=== PATIENT | female | born 1935 | race African-American/Black ===

== ENCOUNTER 2017-07-29 11:44 | Emergency (ER) | payer MEDICARE, OTHER ==
[~2017-07-29] VITALS: Wt 120.0 kg
[~2017-07-29 11:44] MED LIST: ANAS1TAB5 PO; BENA40TA41 PO; CARV25TA79 PO; DULO60CA6 PO; EZET10TA3 PO; FLUT1AER INHALATION; HYD25 PO; INSU100V27 SC; LINA5TAB PO; OMEP20TA55 PO; OMEP40CA6 PO; SPIR25TA PO
[2017-07-29] MEDS ORDERED: ACETAMINOPHEN 500 MG TAB PO STA (13:43)
--- NOTE | 2017-07-29 13:53 | RADRPT ---
PROCEDURE: XR Elbow. CLINICAL INDICATION: Right elbow pain after trauma TECHNIQUE: Three views of the right elbow are available for review COMPARISON: None available FINDINGS: There is normal mineralization and alignment of the bones of the elbow. There is no definite joint effusion. No acute fractures are identified. There is swelling over the olecranon which may be rela kaylee to olecranon bursitis or hematoma . IMPRESSION: 1. No definite fracture or dislocation. 2. Soft tissue swelling over the olecranon consistent with olecranon bursitis versus hematoma. RPTAT: HJBF .George Diallo MD, Date Time Electronically viewed and signed by .George Diallo MD, on 07/29/2017 13:52 .B/
[2017-07-29] MEDS ORDERED: CEPHALEXIN 500 MG CAP PO ONE (14:00)
[2017-07-29] MEDS ORDERED: LIDOCAINE 1% (MDV) 20 ML INJ SC ONE (14:00)
[2017-07-29] MEDS ORDERED: ACET500C5 PO (14:34)
[2017-07-29] MEDS ORDERED: CEPH-443 PO (14:34)
--- NOTE | 2017-07-29 14:40 | ERD ---
ER Documentation Chief Complaint Date/Time DATE: 07/29/17 TIME: 14:36 Chief Complaint R ELBOW PAIN X 3 WEEKS HPI This 82-year-old female presents with a three-week history of pain and swelling on her right elbow. It started after falling out of bed. She has restricted range of motion weakness. The swelling is on her olecranon area. She denies any fevers or redness. ROS All systems reviewed and are negative except as per history of present illness. Medications Home Meds Active Scripts Acetaminophen* (Tylophen*) 500 Mg Capsule, 1 CAP PO Q6H Y for PAIN AND OR ELEVATED TEMP, #15 CAP Prov:JEFF BASURTO MD 07/29/17 Cephalexin* (Keflex*) 500 Mg Capsule, 500 MG PO QID for 7 Days, CAP Prov:JEFF BASURTO MD 07/29/17 Omeprazole Magnesium (Prilosec OTC) 20 Mg Tablet.dr, 20 MG PO DAILY, #30 TAB Prov:VINH THOMPSON 08/28/16 Reported Medications Spironolactone* (Aldactone*) 25 Mg Tablet, 25 MG PO DAILY, #30 TAB 09/28/16 Fluticasone-Vilanterol (Breo Ellipta Inhaler) 100-25 Mcg/Actuation Aer.pow.ba, 1 PUFF INHALATION QHS, #1 INHALER 09/28/16 Benazepril Hcl* (Benazepril Hcl*) 40 Mg Tablet, 40 MG PO BID, #30 TAB 09/28/16 Omeprazole* (Omeprazole*) 40 Mg Capsule.dr, 40 MG PO DAILY, #30 CAP 08/26/16 Hydrochlorothiazide* (Hydrochlorothiazide*) 25 Mg Tab, 25 MG PO DAILY, #30 TAB 08/26/16 Linagliptin (TRADJENTA) 5 Mg Tablet, 5 MG PO DAILY, TAB 01/06/16 Insulin Lisp Protam/Lisp Human* (Humalog Mix (75/25)*) 100 Units/Ml Susp, 42 SC AC MEALS, EA 01/06/16 Ezetimibe* (Zetia*) 10 Mg Tablet, 10 MG PO HS, TAB 01/06/16 Duloxetine Hcl* (Cymbalta*) 60 Mg Capsule.dr, 60 MG PO BID, CAP 01/06/16 Carvedilol* (Carvedilol*) 25 Mg Tablet, 25 MG PO BID, #60 TAB 01/06/16 Anastrozole (Arimidex) 1 Mg Tablet, 1 PO DAILY 04/19/12 Allergies Allergies: Coded Allergies: propofol (Verified Allergy, Intermediate, 09/27/16) rosuvastatin calcium (Verified Allergy, Intermediate, 08/28/16) furosemide (Verified Allergy, Unknown, 08/28/16) gabapentin (Unverified Allergy, Unknown, 09/28/16) insulin aspart (Verified Allergy, Unknown, 08/28/16) sulfamethoxazole (Verified Allergy, Unknown, RASH, 09/28/16) trimethoprim (Verified Allergy, Unknown, RASH, 09/28/16) PMhx/Soc Medical and Surgical Hx: pt denies Surgical Hx History of Surgery: Yes (HYSTERECTOMY, R LUMPECTOMY, NEPHRECTOMY, WOUND DEBRID. , GLAUCOMA SURGERY) Anesthesia Reaction: Yes (PROPOFOL CAUSED THROAT SWELLING) Hx Neurological Disorder: No Hx Respiratory Disorders: Yes (COPD, asthma, bronchitis) Hx Cardiac Disorders: Yes (L BBB, HTN, CAD PCI X2) Hx Psychiatric Problems: No Hx Miscellaneous Medical Probl: Yes (DM, Arteriolscreosis) Hx Alcohol Use: No Hx Substance Use: No Hx Tobacco Use: No Smoking Status: Former smoker Physical Exam Vitals Vital Signs Date Time Temp Pulse Resp B/P Pulse Ox O2 Delivery O2 Flow Rate FiO2 07/29/17 11:52 98.0 63 18 205/71 99 Physical Exam Const: []Alert, not ill-appearing. Head: Atraumatic Eyes: Normal Conjunctiva ENT: Normal External Ears, Nose and Mouth. Neck: Full range of motion..~ No meningismus. Resp: Clear to auscultation bilaterally Cardio: Regular rate and rhythm, no murmurs Abd: Soft, non tender, non distended. Normal bowel sounds Skin: No petechiae or rashes Back: No midline or flank tenderness Ext: No cyanosis, or edema. There is some tenderness and swelling and fluctuance on the right olecranon area. There is no erythema, warmth, effusion or deformities. There is no evidence of ischemia. Neur: Awake and alert Psych: Normal Mood and Affect Results 24 hrs Current Medications Medications (Trade) Dose Ordered Sig/Giovana Route PRN Reason Start Time Stop Time Status Last Admin Dose Admin Lidocaine (Xylocaine 1% (Mdv) 20 ml) 20 ml ONCE ONCE SC 07/29/17 14:00 07/29/17 14:01 DC 07/29/17 14:10 Acetaminophen (Tylenol Tab) 500 mg ONCE STAT PO 07/29/17 13:43 07/29/17 13:52 DC 07/29/17 14:10 Cephalexin (Keflex) 500 mg ONCE ONCE PO 07/29/17 14:00 07/29/17 14:01 DC 07/29/17 14:14 Procedures/MDM X-ray Elbow 3V Interpreted by me: Fat Pads: Normal Bones: No fracture Joints: No dislocation Foreign body: None impression-normal right elbow. Patient presents with signs of right olecranon bursitis. Patient is requesting drainage. Procedure note-the right olecranon was prepped with Betadine and alcohol. 1 cc lidocaine was used for local nutrition. 18- gauge needle was used to aspirate approximately 10 cc of sanguinous fluid. Patient tolerated procedure well and a compression dressing was applied. Patient was discharged home with a prescription of Keflex and Tylenol 6 for a 2 day recheck for worsening redness, fevers, new symptoms. She should otherwise follow-up with primary doctor and orthopedist for recurrent symptoms. Departure Diagnosis: Primary Impression: Bursitis Bursitis location: elbow Elbow bursitis location: olecranon bursitis Laterality: right Qualified Code: M70.21 - Olecranon bursitis of right elbow Condition: Stable Patient Instructions: Bursitis, Elbow (Olecranon) Additional Instructions: Elevate at home. Use Yonis bandage for the next few days. Recheck in 2 days for redness, worsening swelling. JEFF BASURTO MD Jul 29, 2017 14:40
== END 2017-07-29 14:40 | disposition home or self-care (01) ==
LOC: FTE 11:44
DX: M70.21 Olecranon bursitis, right elbow (principal); E11.9 Type 2 diabetes mellitus without complications; I10 Essential (primary) hypertension; I25.10 Atherosclerotic heart disease of native coronary artery without angina pectoris; J44.9 Chronic obstructive pulmonary disease, unspecified; Y93.9 Activity, unspecified; Z79.4 Long term (current) use of insulin; Z87.891 Personal history of nicotine dependence

== ENCOUNTER 2017-08-01 12:28 | Emergency (ER) | payer MEDICARE, OTHER ==
[~2017-08-01] VITALS: Ht 160 cm; Wt 89.0 kg
[~2017-08-01 12:28] MED LIST changes: +ACET500C5 PO; +CEPH-443 PO; -HYD25 PO; +HYDR25TA6 PO
[2017-08-01 12:34] VITALS: Ht 160 cm; Wt 89.0 kg
--- NOTE | 2017-08-01 14:27 | ERA ---
ER Documentation Chief Complaint Date/Time DATE: 08/01/17 TIME: 14:26 Chief Complaint right elbow wound HPI The patient is a 82-year-old female, presenting to the ER for wound check of the right elbow bursitis that was aspirated yesterday. He complains of minimal discharge, is taking Keflex. She denies fever, chills, neck pain, chest pain, dyspnea she does not smoke nor drink Past medical history: COPD, CAD, diabetes mellitus, asthma X Past medical history: Hysterectomy, nephrectomy, stent PCI, glaucoma ROS All systems reviewed and are negative except as per history of present illness. Medications Home Meds Active Scripts Acetaminophen* (Tylophen*) 500 Mg Capsule, 1 CAP PO Q6H Y for PAIN AND OR ELEVATED TEMP, #15 CAP Prov:JEFF BASURTO MD 07/29/17 Cephalexin* (Keflex*) 500 Mg Capsule, 500 MG PO QID for 7 Days, CAP Prov:JEFF BASURTO MD 07/29/17 Omeprazole Magnesium (Prilosec OTC) 20 Mg Tablet., 20 MG PO DAILY, #30 TAB Prov:VINH THOMPSON 08/28/16 Reported Medications Spironolactone* (Aldactone*) 25 Mg Tablet, 25 MG PO DAILY, #30 TAB 09/28/16 Fluticasone-Vilanterol (Breo Ellipta Inhaler) 100-25 Mcg/Actuation Aer.pow.ba, 1 PUFF INHALATION QHS, #1 INHALER 09/28/16 Benazepril Hcl* (Benazepril Hcl*) 40 Mg Tablet, 40 MG PO BID, #30 TAB 09/28/16 Omeprazole* (Omeprazole*) 40 Mg Capsule., 40 MG PO DAILY, #30 CAP 08/26/16 Hydrochlorothiazide* (Hydrochlorothiazide*) 25 Mg Tab, 25 MG PO DAILY, #30 TAB 08/26/16 Linagliptin (TRADJENTA) 5 Mg Tablet, 5 MG PO DAILY, TAB 01/06/16 Insulin Lisp Protam/Lisp Human* (Humalog Mix (75/25)*) 100 Units/Ml Susp, 42 SC AC MEALS, EA 01/06/16 Ezetimibe* (Zetia*) 10 Mg Tablet, 10 MG PO HS, TAB 01/06/16 Duloxetine Hcl* (Cymbalta*) 60 Mg Capsule.dr, 60 MG PO BID, CAP 01/06/16 Carvedilol* (Carvedilol*) 25 Mg Tablet, 25 MG PO BID, #60 TAB 01/06/16 Anastrozole (Arimidex) 1 Mg Tablet, 1 PO DAILY 04/19/12 Allergies Allergies: Coded Allergies: propofol (Verified Allergy, Intermediate, 09/27/16) rosuvastatin calcium (Verified Allergy, Intermediate, 08/28/16) furosemide (Verified Allergy, Unknown, 08/28/16) gabapentin (Unverified Allergy, Unknown, 09/28/16) insulin aspart (Verified Allergy, Unknown, 08/28/16) sulfamethoxazole (Verified Allergy, Unknown, RASH, 09/28/16) trimethoprim (Verified Allergy, Unknown, RASH, 09/28/16) PMhx/Soc History of Surgery: Yes (HYSTERECTOMY, R LUMPECTOMY, NEPHRECTOMY, WOUND DEBRID. , GLAUCOMA SURGERY) Anesthesia Reaction: Yes (PROPOFOL CAUSED THROAT SWELLING) Hx Neurological Disorder: No Hx Respiratory Disorders: Yes (COPD, asthma, bronchitis) Hx Cardiac Disorders: Yes (L BBB, HTN, CAD PCI X2) Hx Psychiatric Problems: No Hx Miscellaneous Medical Probl: Yes (DM, Arteriolscreosis) Hx Alcohol Use: No Hx Substance Use: No Hx Tobacco Use: No Physical Exam Vitals Vital Signs Date Time Temp Pulse Resp B/P Pulse Ox O2 Delivery O2 Flow Rate FiO2 08/01/17 15:23 98.4 78 20 131/68 99 08/01/17 12:34 98.1 65 18 138/65 99 Physical Exam Const: No acute distress. Head: Atraumatic. Eyes: Normal Conjunctiva. ENT: Normal External Ears, Nose and Mouth. Neck: Full range of motion. No meningismus. Resp: Clear to auscultation bilaterally. Cardio: Regular rate and rhythm. Abd: Soft, non distended, normal bowel sounds, non tender. Skin: No petechiae or rashes. Back: No midline or flank tenderness. Ext: Right olecranon bursitis is healing well, no erythema, no discharge, not warm to touch Neur: Awake and alert. No focal deficit Psych: Normal Mood and Affect. Procedures/MDM MEDICAL MAKING DECISION: The patient is a 82-year-old female, presenting with acute right olecranon bursitis. She is stable for outpatient follow-up. Departure Diagnosis: Primary Impression: Encounter for wound re-check Condition: Good Comments I discussed the findings with the patient. I advised the patient to follow-up with the ortho Dr Drake in about 1-2 days, sooner if needed and return if any concern. The patient's blood pressure was elevated (>120/80) but appears stable without evidence of hypertension emergency or urgency. The patient was counseled about the risks of hypertension and urged to pursue outpatient monitoring and therapy within a week with their primary care physician. KENYATTA MCCORMICK MD Aug 01, 2017 14:27
[2017-08-01 15:23] VITALS: BP 131/68; PULSE 78; RESP 20; TEMP 98.4
== END 2017-08-01 15:25 | disposition home or self-care (01) ==
LOC: E/R 12:28
DX: Z48.01 Encounter for change or removal of surgical wound dressing (principal); I10 Essential (primary) hypertension; E11.9 Type 2 diabetes mellitus without complications; J44.9 Chronic obstructive pulmonary disease, unspecified; J45.909 Unspecified asthma, uncomplicated; I25.10 Atherosclerotic heart disease of native coronary artery without angina pectoris; Z79.4 Long term (current) use of insulin; Z79.84 Long term (current) use of oral hypoglycemic drugs
CPT/HCPCS: 99281

== ENCOUNTER 2017-09-22 11:30 | Day surgery (SDC) | payer MEDICARE, OTHER ==
--- NOTE | 2017-09-21 06:36 | CONS ---
DATE OF ADMISSION: 09/22/2017 DATE OF CONSULTATION: MEDICAL CONSULTATION/PREOPERATIVE HISTORY AND PHYSICAL ADMITTING DIAGNOSIS: Recurrent olecranon bursitis with chip fracture of the right elbow, in for leslie ctive surgery by Dr. Brian Drake. HISTORY OF PRESENT ILLNESS: The patient is an 82-year-old female with coronary artery disease, diab etes, arthritis, gastroesophageal reflux disease, hyperlipidemia, chronic kidney disease who fell se veral months ago and injured her right elbow. The patient has had recurrent swelling and pain relat ed to bursitis as well as findings of a chip fracture there. The patient has failed conservative th erapy and is being admitted for elective surgical correction of the bursitis and chip fracture by Dr Raymond Drake. REVIEW OF SYSTEMS: No chest pain, no palpitations, no shortness of breath. No orthopnea. No fever s, chills or night sweats. No cough, no wheezing. The patient does complain of some constipation, but no abdominal pain, no nausea, no swallowing problems. No vomiting, no diarrhea. The patient re ports that the pain in the elbow has been persistent despite several attempts at draining. The chavez ent does have chronic back pain and may need an epidural in the future. NEUROLOGIC: The patient has had some memory loss, slowed thinking and tends to have trouble with th inking after surgery because of anesthesia, it takes weeks usually for her to recover. Blood sugars have been in the 90 to 110 range. No hypoglycemia or hypoglycemic symptoms. PAST MEDICAL HISTORY: Coronary artery disease, gastroesophageal reflux disease, hyperlipidemia, lum bar spondylosis, hypertension, type 2 diabetes with diabetic neuropathy, chronic kidney disease stag e III. PAST SURGICAL HISTORY: Status post right breast lumpectomy for breast cancer, thyroid cancer status post resection, status post right nephrectomy, status post hysterectomy. FAMILY HISTORY: Brother of an aneurysm at age 83. SOCIAL HISTORY: The patient is a , x3, no alcohol use. Quit tobacco, but has a 60-pac k-year history. PHYSICAL EXAMINATION: VITAL SIGNS: Blood pressure 150/60, respirations 12, pulse rate 78 and regular, temperature 98.2, o xygen saturation 96% on room air, weight of 264 pounds. GENERAL: Well-developed, well-nourished female in no acute distress. SKIN: Without rashes. HEENT: EOMI, PERRLA. Oropharynx clear without exudate. NECK: No jugular venous distention, 2+ carotid upstroke without bruits. No elevated jugular venous distention. No lymphadenopathy, no thyromegaly. CHEST: Clear to auscultation bilaterally. No wheezes, rhonchi or rales. HEART: Regular rate and rhythm. Normal S1, S2. No murmurs, no gallops, no rubs. Heart sounds are distant. There is trace pitting edema of the lower extremities. No bruits noted. ABDOMEN: Soft, nontender, mild obesity, normoactive bowel sounds. There is no hepatojugular reflux . MUSCULOSKELETAL: Antalgic gait with use of a front-wheel walker to ambulate. Right olecranon area with warmth, effusion, palpable lump within the effusion. Relatively normal elbow range of motion w ith some mild to moderate pain to palpation. NEUROLOGIC: Nonfocal. LABORATORY EXAMINATION: None. EKG: Done at Dr. Olsen's office. PA and lateral chest x-ray reportedly done by Dr. Drake, no results available. ASSESSMENT AND PLAN: 1. The patient is an 82-year-old white female with multiple medical problems that are under good co ntrol including coronary artery disease, hyperlipidemia, chronic kidney disease stage III, hypertens ion, type 2 diabetes. The patient is an ASA class 2 anesthesia risk and she may proceed with the marquez rgery as scheduled. The patient was cleared by cardiology last week and had her EKG done there. Th e patient also had a PA and lateral chest x-ray done by Dr. Drake, but I have no results at the time o f this dictation. The patient may proceed with the surgery as scheduled. Patient was instructed to take her blood pressure medications the morning of her surgery with a sip of water only. 2. Coronary artery disease without angina/hypertension, stable. Continue with current medications and the patient was instructed to take her blood pressure medication with a sip of water only the mo rning of the surgery. 3. Diabetes. This is stable. Continue with current medications. The patient is to hold the diabe tic medications, insulin, the morning of her surgery and she will be nothing by mouth. 4. Gastroesophageal reflux disease, stable. Continue with diet and medications. 5. Osteoarthritis/lumbar spondylosis, stable. Continue with patient's routine activity and p.r.n. analgesics and follow up with her pain specialist. 6. Hyperlipidemia. Continue with patient's medications and diet. 7. Chronic kidney disease. This is stable. We will continue with controlled diabetes and hyperten gertrudis. The patient will need preoperative laboratory evaluation as instructed by Dr. Drake. Dictated By: RONALDO VENEGAS MD SR/NTS Conf#: [id number] DID#: [id number]
[2017-09-21 13:22] LABS: BASOPHILS % 0.4 % (0.0-2.0); EOSINOPHILS # 0.1 10^3/ul (0.0-0.5); EOSINOPHILS % 1.3 % (0.0-7.0); HEMATOCRIT 43.2 % (37.0-47.0); HEMOGLOBIN 13.7 g/dl (12.0-16.0); LYMPHOCYTES # 2.4 10^3/ul (0.8-2.9); MEAN CORPUSCULAR HEMOGLOBIN 27.8 pg (29.0-33.0); MEAN CORPUSCULAR HGB CONC 31.7 g/dl (32.0-37.0); MEAN CORPUSCULAR VOLUME 87.6 fl (82.0-101.0); MEAN PLATELET VOLUME 10.3 fl (7.4-10.4); MONOCYTE # 0.7 10^3/ul (0.3-0.9); MONOCYTES % 7.5 % (0.0-11.0); NEUTROPHIL # 5.9 10^3/ul (1.6-7.5); NEUTROPHILS % 64.5 % (39.0-77.0); PLATELET COUNT 288 10^3/UL (140-415); RED BLOOD COUNT 4.93 10^6/ul (4.20-5.40); RED CELL DISTRIBUTION WIDTH 14.1 % (11.5-14.5); WHITE BLOOD COUNT 9.1 10^3/ul (4.8-10.8)
[2017-09-21 13:36] LABS: INR 0.9; PROTIME 12.1 Sec (12.2-14.2); PT RATIO 0.9
[2017-09-21 13:37] LABS: PARTIAL THROMBOPLASTIN TIME 26.9 Sec (25.0-35.0)
[2017-09-21 13:38] LABS: ALBUMIN 4.1 g/dl (3.3-4.9); ALBUMIN/GLOBULIN RATIO 1.2; BILIRUBIN,INDIRECT 0.3 mg/dl (0-1.1); BILIRUBIN,TOTAL 0.3 mg/dl (0.2-1.3); TOTAL PROTEIN 7.5 g/dl (6.1-8.1)
[2017-09-21 13:47] LABS: CALCIUM 9.3 mg/dl (8.4-10.2); CREATININE 1.86 mg/dl (0.44-1.00); POTASSIUM 3.7 mmol/L (3.5-5.1)
--- NOTE | 2017-09-21 14:03 | RADRPT ---
PROCEDURE: XR Chest. CLINICAL INDICATION: Preop chest x-ray. TECHNIQUE: Single frontal view of the chest was obtained. COMPARISON: None FINDINGS: The soft tissues are generous. There is a suboptimal inspiration. Degenerative osteophytes in the t horacic spine. The heart, cardiomediastinal silhouette and hilar structures are normal. The pulmona ry vasculature is normal. There are vascular calcifications in the aortic arch. The lungs are clear . The costophrenic angles are normal. IMPRESSION: 1. There is no evidence of active cardiopulmonary disease. 2. Atherosclerosis of the aortic arch. 3. Spondylosis of the thoracic spine. RPTAT:AAJJ Physician Colten Date Time Electronically viewed and signed by Fred Preciado Physician on 09/21/2017 14:02 CALEB/
[~2017-09-22] VITALS: Ht 179.1 cm; Wt 118.3 kg
[2017-09-22] VITALS (17 sets, daily range): BP systolic 136–200; BP diastolic 54–96; PULSE 66–94; RESP 13–20; Ht 179.1 cm; Wt 118.3 kg
[~2017-09-22 11:30] MED LIST changes: +PROPOFOL 200 MG INJ ONE
[2017-09-22] MEDS ORDERED: NEBI5TAB9 PO (12:19)
[2017-09-22] MEDS ORDERED: INSU100I7 SQ (12:31)
[2017-09-22] MEDS ORDERED: INSULIN LISPRO PROT/LISP (75/25) 3ML KWIKPEN SC ONE (13:30)
[2017-09-22] MEDS ORDERED: PROPOFOL 0 ML ONE (14:25)
[2017-09-22] MEDS ORDERED: SUCCINYLCHOLINE CHLORIDE 100 MG/5 ML SYG IV ONE (14:25)
[2017-09-22] MEDS ORDERED: ROCURONIUM 50 MG INJ ONE (14:25)
[2017-09-22] MEDS ORDERED: METOCLOPRAMIDE 10 MG INJ ONE ×2 (14:26→15:26)
[2017-09-22] MEDS ORDERED: ONDANSETRON 4 MG INJ ONE (14:26)
[2017-09-22] MEDS ORDERED: ETOMIDATE 20 MG INJ ONE (14:26)
[2017-09-22] MEDS ORDERED: FENTAnyl 50 MCG/ML VIAL ONE (14:26)
[2017-09-22] MEDS ORDERED: CEFAZOLIN 1 GM INJ ONE (14:26)
[2017-09-22] MEDS ORDERED: POLYMYXIN/BACITRACIN 1L IRRIG ONE (14:38)
--- NOTE | 2017-09-22 15:00 | HPN ---
Date/Time of Note Date/Time of Note DATE: 09/22/17 TIME: 14:59 Interval H&P Admission Note Pt. seen H&P reviewed: No system changes CHELA MANRIQUEZ MD Sep 22, 2017 15:00
[2017-09-22] MEDS ORDERED: ROPIVACAINE 0.5 % 30 ML VIAL ONE (15:10)
[2017-09-22] MEDS ORDERED: PHENYLephrine (100 MCG/ML) 5ML SYG ONE ×2 (15:23→15:29)
[2017-09-22] MEDS ORDERED: DEXAMETHASONE 4 MG/ML 1 ML INJ ONE (15:27)
[2017-09-22] MEDS ORDERED: BUPIVACAINE 0.5%/EPI (SDV) 30 ML INJ ONE (16:12)
[2017-09-22] MEDS ORDERED: ACETAMINOPHEN 1000MG/100ML IV 100 ML ONE (16:15)
[2017-09-22] MEDS ORDERED: HYDROmorphONE (0.2 MG/ML) 10ML SYG IV PRN ×2 (16:30)
[2017-09-22] MEDS ORDERED: FENTAnyl 50 MCG/ML VIAL IV PRN ×3 (16:30)
[2017-09-22] MEDS ORDERED: MEPERIDINE 25 MG INJ IV PRN (16:30)
[2017-09-22] MEDS ORDERED: ONDANSETRON 4 MG INJ IV PRN (16:30)
[2017-09-22] MEDS ORDERED: DIPHENHYDRAMINE 50 MG INJ IV PRN (16:30)
[2017-09-22] MEDS ORDERED: EPHEDrine SULFATE 50 MG/5 ML SYG IV PRN (16:30)
[2017-09-22] MEDS ORDERED: LABETALOL HCL 20MG INJ IV PRN (16:30)
[2017-09-22] MEDS: HYDROmorphONE (0.2 MG/ML) 10ML SYG IV PRN ×2 (17:10→17:29)
[2017-09-22] MEDS: hydrALAzine 20 MG INJ IV PRN ×4 (17:12→17:51)
--- NOTE | 2017-09-22 17:23 | SIPON ---
Date/Time of Note Date/Time of Note DATE: 09/22/17 TIME: 17:14 Operative Report Preoperative Diagnosis olecranon bursaatuis Rt.elbow Postoperative Diagnosis same Operation/Procedure Performed excision of olecranon bursa Rt. elbow Surgeon see signature line office services assistant none Anesthesia: general Estimated blood loss: 10 - 50 ml's Transfusion Required none Specimen none Grafts/Implants none Complications none CHELA MANRIQUEZ MD Sep 22, 2017 17:23
[2017-09-22] MEDS ORDERED: morphine 2 MG INJ IV PRN (17:30)
[2017-09-22] MEDS ORDERED: HYDROCODONE/APAP (5/325) TAB PO PRN (17:30)
--- NOTE | 2017-09-22 19:38 | OPR ---
DATE OF OPERATION: 09/22/2017 PREOPERATIVE DIAGNOSIS: Persistent olecranon bursitis including osteochondral fragment. POSTOPERATIVE DIAGNOSIS: Persistent olecranon bursitis including osteochondral fragment. OPERATION PERFORMED: Excision of the olecranon bursa from right elbow. ANESTHESIA: General anesthesia. SURGEON: Juanita Drake MD PROCEDURE AND FINDINGS: Under anesthesia, the patient was placed in supine position upon the operating table. A tourniquet was placed over the proximal portion on the right and was inflated up to 250 mmHg prior to the procedure. The obviously palpable large olecranon bursa was approached through the middle and posterior longitudinal incision by blunt and sharp dissection. The olecranon bursa was isolated and then was excised. After the excision of the olecranon bursa, bleeding was controlled, and then in order to decrease the space, part of the subcutaneous tissue was taken down to the underlying fascial tissues thus eliminating injury of the space. The closure was carried out using 2-0 Vicryl in subcuticular fashion. After leaving 2 [place] drains in the elbow, the final skin closure was carried out using skin ilana. The usual sterile pressure dressings were applied. The patient tolerated the entire procedure very well and was sent to the recovery room in excellent condition. Dictated By: In Esperanza Drake MD /[email or web address]/bhavik /Document#: [id number]
== END 2017-09-22 19:06 | disposition home or self-care (01) ==
LOC: SDS 11:30
PROVIDERS: ATTEND Orthopaedic Surgery
DX: M70.21 Olecranon bursitis, right elbow (principal); I25.10 Atherosclerotic heart disease of native coronary artery without angina pectoris; I12.9 Hypertensive chronic kidney disease with stage 1 through stage 4 chronic kidney disease, or unspecified chronic kidney disease; N18.3 Chronic kidney disease, stage 3 (moderate); E11.22 Type 2 diabetes mellitus with diabetic chronic kidney disease; Z79.4 Long term (current) use of insulin; M47.816 Spondylosis without myelopathy or radiculopathy, lumbar region; K21.9 Gastro-esophageal reflux disease without esophagitis; E78.5 Hyperlipidemia, unspecified; E66.01 Morbid (severe) obesity due to excess calories; Z68.36 Body mass index [BMI] 36.0-36.9, adult; Z88.2 Allergy status to sulfonamides; Z88.8 Allergy status to other drugs, medicaments and biological substances
CPT/HCPCS: 24105; 71010; 80053; 82962; 85025; 85610; 85730; 88304; J0131; J0360; J0690; J1100; J1170; J2370; J2405; J2765; J2795; J3010